=== PATIENT | male | born 1945 | race Caucasian/White ===

== ENCOUNTER → 2020-12-03 | Outpatient (CLI) | payer MEDICARE ==
--- NOTE | 2020-12-03 17:02 | CT ---
EXAMINATION TYPE: CT soft tissue neck w con DATE OF EXAM: 12/03/2020 1:50 PM COMPARISON: None HISTORY: R 22.1 CT DLP: 732.91 mGycm Automated exposure control for dose reduction was used. CONTRAST: CT scan of the neck is performed with IV Contrast, patient injected with 100 mL of Isovue 300. Helic al imaging obtained through the neck, coronal and sagittal reformatted images are reviewed. FINDINGS: Right cerebellum shows low attenuation. Cortical atrophy present within the brain. No evide nt cervical or supraclavicular adenopathy. Streak artifact is present due to dental amalgam which may limit sensitivity. Airway: No gross abnormality seen. Parotid/submandibular glands: No gross abnormality seen. Carotid/Vascular Structures: Atheromatous narrowing is present of the proximal internal carotid arter y in the left,, no significant stenosis of the proximal internal carotid artery on the right, vertebr al arteries are codominant and patent. Osseous Structures: Degenerative disc changes are present visualized spine, there is multilevel jus inal encroachment. Skull base is unremarkable. Inflammatory change present in the right maxillary sin us. Other: There is a large low dense nodule involving the right lobe of the thyroid gland which causes e nlargement. Patient is post median sternotomy. Calcification along the palatine tonsil consistent wit h chronic infection. Patient's lip mass is not identified. IMPRESSION: Sinus disease. Degenerative disc disease. Suspect hemodynamic significant stenosis of th e proximal internal carotid artery on the left, carotid artery Doppler duplex could be performed for better evaluation. Postop changes. Indeterminate thyroid nodule.
== END | disposition home or self-care (01) ==
LOC: RADCTMAIN 12:38
PROVIDERS: ATTEND Otolaryngology
DX: E04.1 Nontoxic single thyroid nodule (principal); J32.9 Chronic sinusitis, unspecified
CPT/HCPCS: 82565; 84520; 70491; 36415; Q9967

== ENCOUNTER → 2021-10-01 | Outpatient (CLI) | payer MEDICARE ==
--- NOTE | 2021-10-01 16:22 | CT ---
EXAMINATION TYPE: CT soft tissue neck w con CT DLP: 549 mGycm, Automated exposure control for dose reduction was used. DATE OF EXAM: 10/01/2021 3:59 PM COMPARISON: CT 12/03/2020. 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 Axial sections with coronal and sagittal reformats were obtained. Contrast used:100mL mL of Isovue 300 with IV Contrast, Oral contrast used: none. FINDINGS: Brain: There is low-attenuation within the right cerebellar hemisphere consistent with remote injury. Orbits: Unremarkable Sinuses: Mild mucosal thickening of the right maxillary sinus. Spaces of the neck: Clear and symmetric. Musculoskeletal: No acute osseous pathology. Partially visualized sternotomy wires are present. Lymph nodes: Multiple nonenlarged lymph nodes are seen along both anterior chains of the neck. Vascular structures: Patent with atherosclerotic plaque of the internal carotid arteries at the bifur cation with calcified and noncalcified plaque that results in at least 50% stenosis on the left and 2 5-50% stenosis on the right. Thoracic Inlet/airway: Airway is patent. The lung apices are clear. Soft tissues/Thyroid: Heterogenous right thyroid nodules with enhancement measuring up to 3.5 x 2.4 x 2.2 cm. Soft tissues of the left chin demonstrates scattered surgical clips most pronounced along th e left subcutaneous tissues with some postsurgical change and surgical clips. No nearby skin thickeni ng or adenopathy is identified. Other: none. IMPRESSION 1. Postsurgical changes to the left chin without evidence for remaining mass. No lymphadenopathy. 2. Enlarged right thyroid nodules consider dedicated thyroid ultrasound for complete evaluation. 3. Calcified and ossified plaque of the bilateral carotid bifurcation resulting in 50% stenosis of t he left carotid bifurcation at least 25-50% stenosis of the right.
== END | disposition home or self-care (01) ==
LOC: RADCTMAIN 14:34
PROVIDERS: ATTEND Otolaryngology
DX: C76.0 Malignant neoplasm of head, face and neck (principal); I65.23 Occlusion and stenosis of bilateral carotid arteries
CPT/HCPCS: 82565; 84520; 70491; 36415; Q9967

== ENCOUNTER → 2021-10-27 | Outpatient (CLI) | payer MEDICARE ==
--- NOTE | 2021-10-29 23:32 | US ---
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 Hx nodules per patient. Disorder o f thyroid per order. GLAND SIZE: Right Lobe: 6.1 x 3.5 x 2.9 cm Overall Parenchyma: heterogenous Left Lobe: 4.4 x 1.8 x 1.5 cm Overall Parenchyma: heterogeneous Isthmus Thickness: 0.37 cm NODULES RIGHT: # of nodules measured on right: 2 1. 2.5 X 1.8 x 1.4 cm, upper lateral, solid or almost completely solid, isoechoic nodule, which is wider than tall, with smooth margins, without echogenic foci. TR3 Prior size: prior CT only 2. 4.0 X 3.5 x 3.0 cm, lower mid, solid or almost completely solid, isoechoic nodule, which is wide r than tall, with smooth margins, without echogenic foci. Prior size: prior CT only TR3 LEFT: # of nodules measured on left: 2 1. 0.6 X 0.6 x 0.5 cm, upper mid, cystic or almost completely cystic, anechoic nodule, which is wid er than tall, with smooth margins, with echogenic focus. Prior size: prior CT only 2. 0.6 X 0.6 x 0.5 cm, lower mid-medial, cystic or almost completely cystic, anechoic nodule, whic h is wider than tall, with smooth margins, with echogenic focus. Prior size: prior CT only ISTHMUS: # of nodules measured in the isthmus: 0 Bilateral neck scanned, no evidence of lymphadenopathy. Heterogeneous thyroid with asymmetric right-sided enlargement due to larger nodules IMPRESSION: Advise sampling of the dominant right-sided nodules. 2017 ACR TI-RADS LEVEL: TR-RADS 3 - Mildly Suspicious: Follow if > 1.5 cm, FNA if > 2.5 cm *Highest TI-RADS level nodule reported
== END | disposition home or self-care (01) ==
LOC: RADUSWWP 21:07
PROVIDERS: ATTEND Otolaryngology
DX: E04.2 Nontoxic multinodular goiter (principal)
CPT/HCPCS: 76536

== ENCOUNTER 2022-01-18 12:23 | Day surgery (SDC) | payer MEDICARE ==
[2022-01-18 12:48] LABS: Glucose,Whole Blood 264 mg/dL (70-110)
[2022-01-18 12:59] VITALS: TEMP 97.4
[2022-01-18 14:06] VITALS: BP 154/84; PULSE 78; RESP 16
--- NOTE | 2022-01-18 14:23 | US ---
PROCEDURE: US-guided fine needle aspiration of right thyroid upper and mid lower nodule DATE: 01/18/2022 1:55 PM INDICATION: 76-year-old male with multiple right thyroid nodules RADIOLOGIST: Dr. Peacock PATTERN MAKER PROGRAMER: None. ANESTHESIA: Local 1% lidocaine. TECHNIQUE: I verify that I have discussed the potential benefits, risks, and side effects regarding this treatme nt/procedure, the likelihood of the patient achieving his or her goals, and the potential problems th at might occur during recuperation. I verify that I have explained the alternatives to the patient i ncluding the risks, benefits, and side effects related to the alternatives and the risks related to n ot receiving the operation/procedure/treatment. The patient/surrogate decision maker has had an oppo rtunity to ask and have questions answered. I have secured the patient's or the surrogate decision m torsten's consent prior to the operation/procedure/treatment. Patient was placed supine on the ultrasound table and the right neck prepped and draped in the usual sterile fashion. 1% lidocaine was infused into the skin and subcutaneous soft tissues to achieve loc al anesthesia. Under direct ultrasound guidance a 25-gauge needle was advanced down to the right upp er lobe thyroid nodule and fine needle aspiration was performed. This was repeated five times. Spec imens were prepared on a slide and sent to pathology. This was repeated with the right mid and lower pole thyroid nodule. At the termination of the procedure hemostasis quickly achieved with manual compression. Patient eliza erated the procedure well with no immediate postprocedural complication. Patient was transferred fro the radiology department to the holding area in stable condition. FINDINGS: Sonographic images of the right thyroid demonstrate the previously described right upper and right mi d lower thyroid nodule. Intraprocedural images demonstrate satisfactory positioning of biopsy needles for adequate specimen s ampling. IMPRESSION: Technically successful ultrasound guided fine needle aspiration of multiple right thyroid nodules as described above.
== END 2022-01-18 14:03 | disposition home or self-care (01) ==
LOC: RADPROMAIN 12:23
PROVIDERS: ATTEND Otolaryngology
DX: E04.1 Nontoxic single thyroid nodule (principal); E04.2 Nontoxic multinodular goiter
CPT/HCPCS: 10005; 10006; 88173; 88305

== ENCOUNTER → 2022-12-17 | Outpatient (CLI) | payer MEDICARE ==
--- NOTE | 2022-12-17 14:09 | US ---
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 1.7 X 0.9 x 1.4 cm, upper lateral, solid or almost completely solid, isoechoic nodule, which is wider than tall, with smooth margins, without echogenic foci. TR 3. Prior size: 2.5 x 1.8 x 1.4 cm 2. 4.1 X 2.8 x 2.7 cm, lower mid, solid or almost completely solid, isoechoic nodule, which is wide r than tall, with smooth margins, without echogenic foci. TR 3. Prior size: 4.0 x 3.5 x 3.0 cm LEFT: # of nodules measured on left: 1 - multiple anechoic areas noted, only largest measured 1. 0.6 X 0.7 x 0.4 cm, upper mid, cystic or almost completely cystic, anechoic nodule, which is wid er than tall, with smooth margins, with echogenic foci. TR1. Prior size: 0.6 x 0.6 x 0.5 cm ISTHMUS: # of nodules measured in the isthmus: 0 Bilateral neck scanned, no evidence of lymphadenopathy. IMPRESSION: Multinodular thyroid gland redemonstrated. Nodules are stable to marginally decreased in size from pr ior examination as described above. Follow-up ultrasound in one year is recommended.
== END | disposition home or self-care (01) ==
LOC: RADUSWWP 12:55
PROVIDERS: ATTEND Otolaryngology
DX: E04.2 Nontoxic multinodular goiter (principal)
CPT/HCPCS: 76536

== ENCOUNTER → 2024-03-27 | Outpatient (CLI) | payer MEDICARE ==
--- NOTE | 2024-03-27 15:36 | US ---
EXAMINATION TYPE: US thyroid st tissue head/neck DATE OF EXAM: 03/27/2024 COMPARISON: US 12/17/2022 CLINICAL INDICATION: Male, 78 years old with history of E04.1 NODULAR THYROID DISEASE; Thyroid nodule s. TECHNIQUE: Grayscale and color Doppler imaging of the thyroid gland. FINDINGS: GLAND SIZE: Right Lobe: 5.8 x 2.9 x 3.2 cm Overall Parenchyma: heterogeneous Left Lobe: 4.3 x 1.5 x 1.6 cm Overall Parenchyma: heterogeneous Isthmus Thickness: 0.42 cm NODULES RIGHT: # of nodules measured on right: 2 1. 1.3 X 1.4 x 1.0 cm, upper lateral, mixed cystic and solid, hypoechoic nodule, which is wider kat n tall, with smooth margins, with echogenic foci. Prior size: 1.7 x 0.9 x 1.4 cm 2. 4.1 X 2.9 x 3.0 cm, lower mid, solid or almost completely solid, hypoechoic nodule, which is tobin ler than wide, with ill-defined margins, without echogenic foci. TR 4 Prior size: 4.1 x 2.8 x 2.7 cm LEFT: # of nodules measured on left: 1 1. 0.7 X 0.7 x 0.5 cm, upper mid, cystic or almost completely cystic, anechoic nodule, which is wid er than tall, with smooth margins, with echogenic foci. Prior size: 0.6 x 0.7 x 0.4 cm ISTHMUS: # of nodules measured in the isthmus: 0 Bilateral neck scanned, no evidence of lymphadenopathy. IMPRESSION: Moderately suspicious nodule right lobe thyroid. This is previously biopsied 01/18/2022 appears justice gifford 2017 ACR TI-RADS LEVEL: TR-RADS 4 - Moderately Suspicious: Follow if > 1 cm, FNA if > 1.5 cm *Highest TI-RADS level nodule reported [email or web address], , 03/27/2024 3:33 PM
== END | disposition home or self-care (01) ==
LOC: RADUSWWP 14:41
PROVIDERS: ATTEND Otolaryngology
DX: E04.1 Nontoxic single thyroid nodule (principal)
CPT/HCPCS: 76536